=== PATIENT | female | born 1995 | race Caucasian/White ===

== ENCOUNTER 2017-02-15 14:25 | Emergency (ER) | payer BC, OTHER ==
[~2017-02-15] VITALS: Ht 165.1 cm; Wt 75.6 kg
[2017-02-15 14:30] VITALS: BP 141/87; PULSE 97; TEMP 36.8; O2SAT 97; Ht 165.1 cm; Wt 75.6 kg
[2017-02-15] MEDS ORDERED: ACETAMINOPHEN 500 MG TAB PO STA (14:41)
--- NOTE | 2017-02-15 15:14 | DIAGNOSTIC IMAGING REPORT ---
LEFT ANKLE MIN 3 VIEWS ROUTINE CLINICAL HISTORY: same trauma. Pain. COMPARISON: None. DISCUSSION: The bones and joint spaces appear intact. There is no evidence of fracture, dislocation or bony disease. There is no evidence for soft tissue swelling. IMPRESSION: Negative study. The above report was generated using voice recognition software. It may contain grammatical, syntax or spelling errors. Electronically signed by: Jaskaran García M.D. 02/15/2017 3:13 PM Dictated Date/Time: 02/15/2017 3:13 PM
--- NOTE | 2017-02-15 15:14 | DIAGNOSTIC IMAGING REPORT ---
LEFT FOOT MIN 3 VIEWS ROUTINE CLINICAL HISTORY: Left foot pain and swelling TRAUMA COMPARISON: None. DISCUSSION: No acute fractures or dislocations are visualized. There are no erosive changes. IMPRESSION: No fractures identified. Electronically signed by: Isac Tran M.D. 02/15/2017 3:13 PM Dictated Date/Time: 02/15/2017 3:13 PM
--- NOTE | 2017-02-16 06:52 | EMERGENCY ROOM VISIT NOTE ---
ED Visit Note First contact with patient: 14:34 Chief Complaint: Left ankle and foot pain. History of Present Illness: Ms. Krueger is a 21-year-old white female who limps into the ED complaining of left ankle and foot pain. Patient reports approximately 2.5 hours ago she was running for exercise and lost her balance and twisted her ankle. Since that time she is reporting that she has lateral left ankle pain and pain over the lateral aspect of the foot. She describes her pain as a sharp and throbbing sensation around all the ligamentous structures of the lateral aspect of the ankle and over the inferior aspect of the medial ankle. There is also pain and throbbing over the lateral cuneiform tarsals and the fourth and fifth metatarsals. She rates her overall discomfort 7/10. Her pain worsens with ambulation and palpation of the ligamentous structures around the lateral malleolus and inferior aspect of the medial malleolus and palpation of the lateral cuneiform and fourth and fifth metatarsals. She has not identified any alleviating factors related to the pain. She has not taken any medications for pain prior to arrival at the hospital. She denies any associated symptoms including hip pain, knee pain, lower leg pain, foot weakness/numbness/tingling. She does reports she's had previous significant sprains of the ankles but no previous fractures or surgeries. Review of Systems: As noted above in history of present illness. Past Medical History: Asthma, bronchitis, status post wisdom teeth extraction and unspecified shoulder surgery. Current Medications: Patient denies. Allergies to Medications: Patient denies. Social History: Patient is currently employed; she feels safe in her home environment; she denies tobacco use. Physical Examination: Vital Signs: Date Time Temp Pulse Resp B/P (MAP) Pulse Ox O2 Delivery O2 Flow Rate FiO2 02/15/17 14:30 36.8 97 20 141/87 97 Room Air GENERAL: 21-year-old female in mild to moderate distress due to pain, nontoxic- appearing, afebrile and hemodynamically stable. NEUROLOGICAL: Awake, alert and oriented to person, place and time. Answering questions appropriately and following commands. Good hand eye coordination. No focal motor sensory deficits. SKIN: Warm, dry and pink. No soft tissue eruptions or trauma noted. LEFT LOWER EXTREMITY: No gross bony deformity. No tenderness in the hip, knee or lower leg. Moderate tenderness over the lateral malleolus with mild swelling without bony deformity or crepitus. Minimal tenderness over the inferior aspect of the medial malleolus with no swelling, bony deformity or crepitus. There is also moderate tenderness and swelling over the lateral cuneiform tarsal in the fourth and fifth metacarpals with moderate swelling and early ecchymosis but no bony deformity or crepitus. Patient was not able to tolerate ligamentous testing due to pain and swelling. She did have full range of motion in plantar flexion and dorsiflexion of the ankle and flexion and extension of all the toes. Throughout the foot the toes were warm and pink and capillary refill is brisk. She is able to distinguish light sensations through all dermatomes. ED Course: Patient is assessed as noted above. Patient's medication list was reviewed. Patient was given 1 g of Tylenol by mouth and ice for pain and swelling. Left Ankle X-Rays: Were read by myself and the radiologist and shows no acute fractures or dislocations. No evidence of soft tissue swelling. Left Foot X-Rays: Were read by myself and the radiologist showing no evidence of acute fractures or dislocations. Patient was placed in a gel splint and a postop shoe and instructed on nonweight bearing crutch use. Patient was educated about today's findings and instructed on her treatment plan ; she verbalizes understanding and agreement with this plan. Clinical Impression: Left ankle sprain. Left foot contusion. Disposition: Patient discharged home in stable condition; prior to departure she was reassessed and subjectively reported she was feeling slightly better and rated her discomfort 6/10. Plan: Comfort measures were discussed with the patient including rest, ice, elevation , gel splint/postop shoe and nonweightbearing crutches. Additionally ibuprofen and acetaminophen medications were reviewed with the patient. Patient was signed off work for 3 days. Patient was encouraged to follow-up with orthopedics if no better in 6-7 days. Patient was encouraged return to the ED for worsening/uncontrolled pain, uncontrolled swelling, foot weakness/numbness/tingling or any new/concerning symptoms.
== END 2017-02-15 15:49 | disposition home or self-care (01) ==
LOC: C.EDB 14:26 → C.EDD 15:49
DX: S93.402A Sprain of unspecified ligament of left ankle, initial encounter (principal); S90.32XA Contusion of left foot, initial encounter; M25.572 Pain in left ankle and joints of left foot; M79.672 Pain in left foot; X50.9XXA Other and unspecified overexertion or strenuous movements or postures, initial encounter; Y93.02 Activity, running

== ENCOUNTER 2017-10-27 00:56 | Outpatient (CLI) | payer OTHER ==
[~2017-10-27] VITALS: Ht 165.1 cm; Wt 78.5 kg
[2017-10-27] MEDS ORDERED: LACTATED RINGER'S 1000ML 500 ML IV ONE (01:12)
[2017-10-27] MEDS ORDERED: PROMETHAZINE HCL INJ 25 MG in SODIUM CHLORIDE 0.9% 50ML 50 ML IV PRN (01:15)
[2017-10-27] MEDS ORDERED: ACETAMINOPHEN 325 MG TAB PO PRN (01:15)
[2017-10-27] MEDS ORDERED: ONDANSETRON INJ 2 MG/ML 2 ML VIAL IV PRN (01:15)
[2017-10-27 01:39] LABS: HEMATOCRIT 35.7 % (37-47); HEMOGLOBIN 11.9 g/dL (12.0-16.0); MEAN CELL VOLUME 86.9 fL (80-100); MEAN CORPUSCULAR HGB CONC 33.3 g/dl (32-36); MEAN PLATELET VOLUME 9.7 fL (7.4-10.4); PLATELET COUNT 206 K/uL (130-400); RED CELL DISTRIBUTION WIDTH CV 13.5 % (11.5-14.5); RED CELL DISTRIBUTION WIDTH SD 43.3 fL (36.4-46.3); WHITE BLOOD COUNT 11.97 K/uL (4.8-10.8)
[2017-10-27 01:54] LABS: POTASSIUM 3.9 mmol/L (3.5-5.1)
[2017-10-27 02:11] VITALS: Ht 165.1 cm; Wt 78.5 kg
[2017-10-27] MEDS ORDERED: SERT1TAB72 PO (02:12)
[2017-10-27 02:41] LABS: BASO % 0.1 %; BASO ABS # 0.01 K/uL (0-0.2); EOS % 0.3 %; EOS ABS # 0.04 K/uL (0-0.5); IG# 0.03 K/uL (0.00-0.02); LYMPH ABS # 0.36 K/uL (1.2-3.4); MONO % 2.6 %; MONO ABS # 0.31 K/uL (0.11-0.59); NEUT % 93.7 %; NEUT ABS # 11.22 K/uL (1.4-6.5)
[2017-10-27] MEDS: D5W AND LACTATED RINGERS 1,000 ML IV SCH ×2 (02:49→02:50)
[2017-10-27] MEDS ORDERED: ONDA4TAB10 SL (09:36)
--- NOTE | 2017-10-27 09:39 | Discharge Instructions ---
Discharge Instructions Date of Service Oct 27, 2017. Admission Reason for Admission: Cramping Discharge Discharge Diagnosis / Problem: Nausea and vomitting of Discharge Goals Goal(s): Continuing OB care Activity Recommendations Activity Limitations: per Instructions/Follow-up section Lifting Limitations: no more than 10 pounds Exercise/Sports Limitations: rest today, until after follow-up appointment May Resume Sexual Activity: after one week Shower/Bathe: no limitations Driving or Machine Use: resume 3 days after discharge . Instructions / Follow-Up Instructions / Follow-Up next week in office Current Hospital Diet Patient's current hospital diet: Clear Liquid Diet Discharge Diet Recommended Diet: Regular OB Diet Pending Studies Studies pending at discharge: no Medical Emergencies . Who to Call and When: Medical Emergencies: If at any time you feel your situation is an emergency, please call 911 immediately. . Non-Emergent Contact Non-Emergency issues call your: Primary Care Provider . . "Provider Documentation" section prepared by Mandeep Llamas. .
--- NOTE | 2017-10-27 09:47 | Progress Note ---
Progress Note Date of Service Oct 27, 2017. 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
== END 2017-10-27 10:05 | disposition home or self-care (01) ==
LOC: C.LD 00:56 → C.OPB 00:56
PROVIDERS: ATTEND Obstetrics & Gynecology
DX: O62.9 Abnormality of forces of labor, unspecified (principal); O21.9 Vomiting of pregnancy, unspecified; O99.342 Other mental disorders complicating pregnancy, second trimester; F32.9 Major depressive disorder, single episode, unspecified; O99.282 Endocrine, nutritional and metabolic diseases complicating pregnancy, second trimester; E86.0 Dehydration; Z3A.27 27 weeks gestation of pregnancy

== ENCOUNTER 2019-08-15 23:20 | Inpatient (IN) ==
[2019-08-15] MEDS: LACTATED RINGER'S 1,000 ML IV PRN (23:41)
[2019-08-15] MEDS ORDERED: OXYTOCIN 30 UNITS/500 ML BAG IV PRN (23:41)
[2019-08-16] LABS: Hematocrit (blood only) 33.7 % (37-47); Hemoglobin 10.7 g/dL (12.0-16.0); Mean Corpuscular Hemoglobin 25.8 pg (25-34); Mean Corpuscular Volume 81.2 fL (80-100); Mean Platelet Volume 10.9 fL (7.4-10.4); Platelet Count 159 K/uL (130-400); RDW Coefficient of Variation 15.4 % (11.5-14.5); Red Blood Count 4.15 M/uL (4.2-5.4); White Blood Count 8.78 K/uL (4.8-10.8)
[2019-08-16 00:01] LABS: Mean Corpuscular Hgb Conc 31.8 g/dL (32-36)
[2019-08-16] MEDS ORDERED: fentaNYL 2MCG/ML ROPIV 1.25MG/ML 100 ML BAG EPI ONE (00:01)
[2019-08-16] MEDS ORDERED: ePHEDrine sulfate 50 MG/ML AMP ONE (00:01)
[2019-08-16] MEDS ORDERED: fentaNYL citrate 100 MCG/2 ML VIAL ONE (00:01)
[2019-08-16] MEDS ORDERED: BUPIVACAINE 0.25% 30 ML VIAL ONE (00:01)
[2019-08-16] MEDS ORDERED: ONDANSETRON INJ 2 MG/ML 2 ML VIAL IV PRN (00:27)
[2019-08-16] MEDS ORDERED: DiphenhydrAMINE HCL 50 MG/ML VIAL IV PRN (00:27)
[2019-08-16] MEDS ORDERED: NALOXONE HCL 1 MG in SODIUM CHLORIDE 0.9% 1000ML 1,000 ML IV PRN (00:27)
[2019-08-16] MEDS ORDERED: ePHEDrine sulfate 50 MG/ML AMP IV PRN (00:27)
[2019-08-16] MEDS ORDERED: NALOXONE HCL 0.4 MG/1 ML VIAL/CARP IV PRN (00:27)
[2019-08-16] MEDS ORDERED: NALBUPHINE HCL INJ 10 MG/ML AMP IV PRN (00:27)
[2019-08-16] MEDS ORDERED: fentaNYL 2MCG/ML ROPIV 1.25MG/ML 100 ML BAG EPI PRN (00:27)
--- NOTE | 2019-08-16 00:34 | Anesthesiology Consultation ---
Date of Service August 16, 2019 Assessment & Plan Chart Review Chart Review: Patient NOT seen in Pre Admission Testing and Acceptable Risk for Labor Epidural Consults Requested none ASA ASA2 Proposed Anesthesia Anesthesia Type: Labor Epidural and CSE Risk / Benefits Reviewed With: PT / POA / Parent / Guardian, Accepts Plan and Informed Consent Obtained History Height/Weight Height: 5 ft 5 in Weight: 78.471 kg Allergies Allergy/AdvReac Type Severity Reaction Status Date / Time No Known Allergies Allergy Verified 08/15/19 23:47 Medications Home Medications Medication Instructions Recorded Confirmed Last Taken 1 tab PO DAILY 07/10/19 07/10/19 07/10/19 08:00 ferrous sulfate 325 mg PO DAILY #30 tab 07/10/19 Unknown NPO Date Last Intake of Fluids: 08/15/19 Time Last Intake of Fluids: 22:00 Date Last Intake of Solids: 08/15/19 Time Last Intake of Solids: 18:00 Past Medical History Medical History Esophagitis Kidney stone Exercise / Class Metabolic Activity II 4-5 Yardwork/Stairs/Walk up hill Past Surgical History Surgical History H/O shoulder surgery History of esophagogastroduodenoscopy (EGD) History of hip surgery Past Anesthesia History No Hx of Anesthesia Complications and No Family Hx of Anesthesia Complications History of PONV No Hx of PONV and No Hx of Motion Sickness Social History Smoking Status: Never smoker Do You Dip or Chew Tobacco: No Hx Alcohol Use: No Hx Substance Use: No substance use type: does not use Review of Systems no chest pain or sob Physical Exam Vital Signs Last Vital Signs Temp 36.7 C 08/15/19 23:28 Pulse 84 08/16/19 00:31 Resp 18 08/15/19 23:35 BP 124/67 08/15/19 23:35 Pulse Ox 99 08/16/19 00:31 ENMT Mouth: no TMJ abnormality Thyromental Distance: > or= 3.5 Finger Breadths Mallampati Class: II Neck normal visual inspection Respiratory normal respiratory effort Auscultation: lungs clear to auscultation bilaterally Cardiovascular Rate/Rhythm: regular rate and regular rhythm Musculoskeletal Spine: normal cervical ROM Neurologic moves all extremities Psychiatric Orientation: alert and oriented x 3 Testing Laboratory Results 08/15/19 23:51
[2019-08-16] MEDS: LACTATED RINGER'S 1,000 ML IV PRN (00:43)
--- NOTE | 2019-08-16 01:41 | Obstetrical Progress Note ---
Date of Service August 16, 2019 Subjective Pt doing well FHR; CAT1 ctx; 1-3mins VE;10/100/0 AROM -clear anticipate VD Results & Data Vital Signs (Past 12 Hours) Vital Signs Temp Pulse Resp BP Pulse Ox 08/16/19 01:36 76 118/69 08/16/19 01:35 75 100 08/16/19 01:30 72 18 100 08/16/19 01:25 74 100 08/16/19 01:21 63 111/63 08/16/19 01:20 68 99 08/16/19 01:15 65 90 08/16/19 01:10 71 100 08/16/19 01:05 71 113/65 99 08/16/19 01:00 74 100 08/16/19 00:58 85 106/55 L 08/16/19 00:56 75 99/55 L 08/16/19 00:55 84 100 08/16/19 00:54 82 109/57 L 08/16/19 00:52 80 104/58 L 08/16/19 00:50 91 H 108/61 99 08/16/19 00:48 63 103/56 L 08/16/19 00:47 83 116/56 L 08/16/19 00:45 85 99 08/16/19 00:44 82 128/75 08/16/19 00:42 89 128/85 08/16/19 00:40 78 98 08/16/19 00:36 95 H 92 08/16/19 00:35 80 100 08/16/19 00:31 84 99 08/15/19 23:35 61 18 124/67 08/15/19 23:28 36.7 C 08/15/19 23:27 61 124/67
[2019-08-16] MEDS ORDERED: METHYLERGONOVINE MALEATE 0.2 MG/ML AMP ONE (02:47)
[2019-08-16] MEDS ORDERED: OXYTOCIN 30 UNITS/500 ML BAG IV PRN (02:54)
[2019-08-16] MEDS ORDERED: METHYLERGONOVINE MALEATE 0.2 MG/ML AMP IM ONE (02:54)
[2019-08-16] MEDS ORDERED: bisacodyL 10 MG SUPP PR PRN (02:54)
[2019-08-16] MEDS ORDERED: ACETAMINOPHEN 325 MG TAB PO PRN (02:54)
[2019-08-16] MEDS ORDERED: miSOPROStoL 200 MCG TAB PR ONE (02:54)
[2019-08-16] MEDS ORDERED: SUPERCREAM 0.870% 15 GM JAR EXT PRN (02:54)
[2019-08-16] MEDS ORDERED: BENZOCAINE 20% AER SPR 82.5 GM CAN EXT PRN (02:54)
[2019-08-16] MEDS ORDERED: DIPHTHERIA/TETANUS/PERTUSSIS 0.5 ML SYR/VIAL IM ONE (02:54)
[2019-08-16] MEDS ORDERED: HYDROCORTISONE ACETATE 25 MG SUPP PR PRN (02:54)
--- NOTE | 2019-08-16 06:43 | Anesthesia Procedure Note ---
Date of Service August 16, 2019 Anesthesia Post Epidural Note Vital Signs Vital Signs: Temp Pulse Resp BP Pulse Ox 36.7 C 83 18 133/84 98 08/16/19 02:59 08/16/19 06:10 08/16/19 06:10 08/16/19 06:10 08/16/19 03:15 Notes Mental Status: alert / awake / arousable and participated in evaluation Nausea / Vomiting: adequately controlled Pain: adequately controlled Airway Patency, RR, SpO2: stable & adequate BP & HR: stable & adequate Hydration State: stable & adequate Neuraxial Anesthesia: was administered and sensory block is resolving Anesthetic Complications: no major complications apparent and Pt Satisfied with anesthetic care Epidural: Removed without complications and With tip intact
--- NOTE | 2019-08-16 06:44 | Delivery Summary ---
DATE OF OPERATION: 08/15/2019 The patient delivered a live infant in left occiput anterior presentation with right hand compound presentation. was delivered. Cord was clamped and cut after 1 minute. The patient's weight and Apgars in the pediatric record. Cord blood was obtained. Placenta spontaneously delivered. Inspection of the placenta shows a 3-vessel cord. Inspection of the perineum showed no laceration or tears. Rectal exam post repair showed good sphincter tone. Estimated blood loss is 400 mL. All instruments were removed from the vagina including sponges and retractors. Baby and mother are doing well in recovery. I attest to the content of the Intraoperative Record and any orders documented therein. Any exception s are noted below.
[2019-08-16] MEDS: FERROUS SULFATE 325 MG TAB PO SCH (07:50)
[2019-08-16] MEDS: DOCUSATE SODIUM 100 MG CAP PO SCH ×2 (07:50→20:18)
[2019-08-16] MEDS: IBUPROFEN 600 MG TAB PO PRN ×2 (07:50→12:20)
[2019-08-16] MEDS: PRENATAL VITAMIN 1 TAB PO SCH (07:50)
[2019-08-17 07:23] LABS: Hematocrit (blood only) 32.6 % (37-47); Hemoglobin 10.3 g/dL (12.0-16.0); Mean Corpuscular Hemoglobin 25.9 pg (25-34); Mean Corpuscular Hgb Conc 31.6 g/dL (32-36); Mean Corpuscular Volume 82.1 fL (80-100); Mean Platelet Volume 10.9 fL (7.4-10.4); Platelet Count 146 K/uL (130-400); RDW Coefficient of Variation 15.7 % (11.5-14.5); RDW Standard Deviation 46.6 fL (36.4-46.3); Red Blood Count 3.97 M/uL (4.2-5.4); White Blood Count 7.79 K/uL (4.8-10.8)
--- NOTE | 2019-08-17 08:27 | Obstetrical Progress Note ---
Date of Service August 17, 2019 Subjective Patient is seen and examined. She feels well, no complaints. Likes to be discharged Ambulating without dizziness Voiding without difficulty Tolerating regular diet with out N&V Bleeding is minimal No fever/ chills/ CP/ SOB/ N&V/ Leg pain Breast feeding without problems Vital Signs Temp Pulse Resp BP Pulse Ox 08/17/19 00:15 36.8 C 60 16 126/87 98 08/16/19 20:10 36.8 C 82 18 129/83 98 08/16/19 15:40 36.9 C 67 16 125/78 98 08/16/19 11:00 36.8 C 56 L 14 127/87 98 08/17/19 Range/Units 06:30 WBC 7.79 (4.8-10.8) K/uL RBC 3.97 L (4.2-5.4) M/uL Hgb 10.3 L (12.0-16.0) g/dL Hct 32.6 L (37-47) % MCV 82.1 (80-100) fL MCH 25.9 (25-34) pg MCHC 31.6 L (32-36) g/dL RDW Std Deviation 46.6 H (36.4-46.3) fL RDW Coeff of Ariel 15.7 H (11.5-14.5) % Plt Count 146 (130-400) K/uL MPV 10.9 H (7.4-10.4) fL PE: General: Alert, orientedx3, NAD Abd: soft, NT, fundus firm, below Umbilicus Perineum intact, Lochia rubra minimal Ext; NT, no edema AP: 24 yo s/p , ppd# 1 VSS Afebrile doing well Continue routine care All questions were answered D/C home , f/u in office Results & Data Vital Signs (Past 12 Hours) Vital Signs Temp Pulse Resp BP Pulse Ox 08/17/19 00:15 36.8 C 60 16 126/87 98
[2019-08-17] MEDS: FERROUS SULFATE 325 MG TAB PO SCH (08:49)
[2019-08-17] MEDS: DOCUSATE SODIUM 100 MG CAP PO SCH (08:51)
[2019-08-17] MEDS: PRENATAL VITAMIN 1 TAB PO SCH (08:51)
[2019-08-17] MEDS: IBUPROFEN 600 MG TAB PO PRN (08:51)
[2019-08-17] MEDS ORDERED: bisacodyL 5 MG TABEC PO SCH (20:00)
== END 2019-08-17 13:15 | disposition home or self-care (01) | DRG 807 ==
LOC: OPB 23:20 → 4S1 23:20 → 4S2 08-16 06:00

== ENCOUNTER 2019-11-28 14:33 | Observation (INO) ==
[2019-11-28] MEDS ORDERED: SODIUM CHLORIDE 0.9% 1000ML 1,000 ML IV ONE (14:49)
[2019-11-28 15:10] LABS: Basophils # (auto) 0.02 K/uL (0-0.2); Basophils % (auto) 0.2 %; Eosinophils % (auto) 1.1 %; Hematocrit (blood only) 41.5 % (37-47); Hemoglobin 13.9 g/dL (12.0-16.0); Immature Granulocytes # (auto) 0.02 K/uL (0.00-0.02); Immature Granulocytes % (auto) 0.2 %; Lymphocytes # (auto) 1.09 K/uL (1.2-3.4); Lymphocytes % (auto) 12.2 %; Mean Corpuscular Hemoglobin 28.7 pg (25-34); Mean Corpuscular Hgb Conc 33.5 g/dL (32-36); Mean Corpuscular Volume 85.6 fL (80-100); Mean Platelet Volume 10.6 fL (7.4-10.4); Monocytes # (auto) 0.68 K/uL (0.11-0.59); Monocytes % (auto) 7.6 %; Neutrophils # (auto) 7.05 K/uL (1.4-6.5); Neutrophils % (auto) 78.7 %; Platelet Count 209 K/uL (130-400); RDW Coefficient of Variation 13.4 % (11.5-14.5); Red Blood Count 4.85 M/uL (4.2-5.4); White Blood Count 8.96 K/uL (4.8-10.8)
--- NOTE | 2019-11-28 15:18 | Emergency Department Note ---
History of Present Illness General Chief complaint: Abdominal Pain Stated complaint: RIGHT SIDED ABDOMINAL PAIN Time Seen by Provider: 11/28/19 14:37 History of Present Illness Maximum Pain Intensity: 7 24-year-old female who presents to the emergency department with complaint of abdominal pain that is now radiating to the right lower quadrant. The patient reports generalized discomfort that started Wednesday evening, less than 48 hours ago. The patient now reports pain with ambulation. The pain does feel better when she lays in the position. She denies any fevers, chills or vomiting. She has had some chills. The patient reports a prior history of ovarian cyst and kidney stones, but reports that this feels different. Last menstruation was in early September, having had a recent spontaneous vaginal childbirth. The patient rates her discomfort a 7 out of 10. Home Medications Home Medications Medication Instructions Recorded Confirmed Type No Known Home Medications 11/28/19 11/28/19 History Allergies Allergy/AdvReac Type Severity Reaction Status Date / Time No Known Allergies Allergy Verified 11/28/19 15:23 Past Med/Surg History Medical History Esophagitis Kidney stone Ovarian cyst Surgical History H/O shoulder surgery History of esophagogastroduodenoscopy (EGD) History of hip surgery Social History Preferred Language: Romanian Communication Ability: Effective [employer] Required: No Beliefs That Will Affect Care: None marital status: Single Current Living Situation: Family and Significant Other Current Living Situation Comment: Fiance and child current occupational status: employed Feels Safe at Home: Yes Smoking Status: Never smoker Second Hand Exposure: No ; Hx Alcohol Use: No Hx Substance Use: No Review of Systems 10 system review was performed and was negative except for pertinent positives and negatives as indicated in history of present illness Physical Exam Vital Signs Vital Signs - 24 hr 11/28/19 14:34 11/28/19 16:34 Temperature 36.7 C Temperature Source Oral Pulse Rate 106 H Pulse Rate [Finger] 87 Respiratory Rate 18 17 Respiratory Effort / Characteristics Non-Labored Respiratory Depth Normal Normal Respiratory Pattern Regular Blood Pressure 123/84 Blood Pressure [Left Arm] 112/64 Blood Pressure Mean 97 Blood Pressure Mean [Left Arm] 80 Pulse Oximetry 98 97 Oxygen Delivery Method Room Air Room Air Sepsis Recent Fever Within 48 Hours No Sepsis New/Unexplained Change in Mental Status No Sepsis Action Taken by Nursing No Action Required CONSTITUTIONAL: Healthy and well nourished. Patient appears in mild discomfort. HEENT: Normocephalic, atraumatic. No scleral icterus or conjunctival injection/pallor. NECK: Full active range of motion without discomfort. RESPIRATORY: Clear to auscultation bilaterally with no wheezing, crackles, rhonchi or stridor. CARDIOVASCULAR: Regular rate and rhythm with no murmurs, rubs or gallops. GASTROINTESTINAL: Bowel sounds present in all quadrants. Patient has a positive McBurney's point tenderness, positive Rovsing sign, positive psoas/obturator sign and positive heeltap. No rigidity, guarding or rebound. Negative CVA tenderness. MUSCULOSKELETAL: Full range of motion of all joints without discomfort. INTEGUMENTARY: No rash or other significant dermatologic conditions noted. HEMATOLOGIC: No ecchymosis or petechiae. PSYCHIATRIC: Positive affect. NEUROLOGIC: No focal neurologic deficits noted. Course Course Patient history and physical exam were performed. Nurse's notes were reviewed. Vital signs were reviewed, showing a mild tachycardia at 106 bpm, otherwise the patient is afebrile and normotensive. IV access was established, and labs were drawn. The patient refused any analgesics or antiemetics. Review of labs does not show any significant abnormalities. CT of the abdomen and pelvis with IV contrast shows a phlegmonous process concerning for perforated diverticulitis. No fluid collections appreciated. The case was further discussed with Dr. Walters, ED attending physician, who recommended consulting Dr. Gifford, general surgeon on-call. Dr. Gifford indicated that this is a nonsurgical event, andrecommended admission with IV antibiotics. The case was then discussed with the [facility] hospitalist group. Prior to transfer of care, the patient was ordered Zosyn 4.5 g IV infusion, as well as IV morphine and Zofran as the patient did request something for pain since she was going to be admitted. Please see the hospitalist and general surgeon dictations for further treatment and final disposition. Administered Medications Ioversol (Optiray 320 100ml) 92 ml IV ONCE PRN PRN Reason: Interaction Checking Stop: 12/02/19 16:16 Last Admin: 11/28/19 16:17 Dose: 92 ml Documented by: [id number] Discontinued Medications Sodium Chloride (Nss 1000ml) 1,000 mls @ 999 mls/hr IV .Q1H1M ONE Stop: 11/28/19 15:49 Last Infusion: 11/28/19 16:42 Dose: 0 mls/hr Documented by: [id number] Admin: 11/28/19 15:14 Dose: 999 mls/hr Documented by: [id number] Medical Decision Making Medical Records Attestation: I reviewed the patient's medical records. Home Medications Current Medication List: was personally reviewed by in Laboratory Data Attestation: I reviewed the patient's lab results. Result diagrams: 11/28/19 14:55 11/28/19 14:55 Lab Results 11/28/19 11/28/19 11/28/19 Range/Units 14:55 14:55 14:59 WBC 8.96 (4.8-10.8) K/uL RBC 4.85 (4.2-5.4) M/uL Hgb 13.9 (12.0-16.0) g/dL Hct 41.5 (37-47) % MCV 85.6 (80-100) fL MCH 28.7 (25-34) pg MCHC 33.5 (32-36) g/dL RDW Std Deviation 42.0 (36.4-46.3) fL RDW Coeff of Ariel 13.4 (11.5-14.5) % Plt Count 209 (130-400) K/uL MPV 10.6 H (7.4-10.4) fL Immature Gran % (Auto) 0.2 % Neut % (Auto) 78.7 % Lymph % (Auto) 12.2 % [place] % (Auto) 7.6 % Eos % (Auto) 1.1 % Baso % (Auto) 0.2 % Immature Gran # (Auto) 0.02 (0.00-0.02) K/uL Neut # (Auto) 7.05 H (1.4-6.5) K/uL Lymph # (Auto) 1.09 L (1.2-3.4) K/uL [place] # (Auto) 0.68 H (0.11-0.59) K/uL Eos # (Auto) 0.10 (0-0.5) K/uL Baso # (Auto) 0.02 (0-0.2) K/uL Sodium 140 (136-145) mmol/L Potassium 3.6 (3.5-5.1) mmol/L Chloride 108 H (98-107) mmol/L Carbon Dioxide 27 (21-32) mmol/L Anion Gap 5.0 (3-11) BUN 9 (7-18) mg/dl Creatinine 0.82 (0.6-1.2) mg/dl Est Cr Clr Drug Dosing 95.2 ml/min Est GFR ( Amer) 116.1 Est GFR (Non-Af Amer) 100.2 BUN/Creatinine Ratio 10.6 (10-20) Glucose 90 (70-99) mg/dl Calcium 8.8 (8.5-10.1) mg/dl Total Bilirubin 1.9 H (0.2-1) mg/dl AST 11 L (15-37) U/L ALT 20 (12-78) U/L Alkaline Phosphatase 91 (45-117) U/L Total Protein 7.7 (6.4-8.2) gm/dl Albumin 3.8 (3.4-5.0) gm/dl Globulin 3.9 (2.5-4.0) gm/dl Albumin/Globulin Ratio 1.0 (0.9-2) Lipase 83 (73-393) U/L Urine Color Dark Yellow Urine Appearance Clear (Clear) Urine pH 6.0 (4.5-7.5) Ur Specific [place] 1.035 H (1.000-1.030) Urine Protein Negative (Negative) Urine Glucose (UA) Negative (Negative) Urine Ketones Trace H (Negative) Urine Blood Negative (Negative) Urine Nitrite Negative (Negative) Urine Bilirubin Negative (Negative) Urine Urobilinogen Negative (Negative) Ur Leukocyte Esterase Negative (Negative) Imaging Data Attestation: I personally reviewed and interpreted this imaging study as follows: My Impression: CT of the abdomen and pelvis with IV contrast shows a phlegmon type process in the right upper quadrant, concerning for perforated diverticulitis versus colitis, and less likely epiploic appendagitis. Radiologist report was also reviewed. Radiologist's Impression: CT abd pelvis IV con only CT DOSE: 293.45 mGy.cm HISTORY: Pain. Flank pain. RLQ pain TECHNIQUE: Multiaxial CT images of the abdomen and pelvis were performed following the use of intravenous contrast. A dose lowering technique was utilized adhering to the principles of ALARA. COMPARISON STUDY: 02/27/2015 FINDINGS: Lung bases remain generally clear. The liver spleen and pancreas are unremarkable. Inferior to the gallbladder is a phlegmon as type process containing what is statistically an appendicolith, although the appendix appears to be inferior to this process with a maximum diameter of 4.5 mm. Possibility of a calcified diverticulum is considered consistent with potential perforated diverticulitis. There does seem to be moderate wall thickening of the hepatic flexure of the colon. The inferior aspect of the cecum is unremarkable. The appendix again is unremarkable. Bowel pattern is considered nonobstructive. There is a small amount of free flu id within the pelvic cul-de-sac. There are small bilateral ovarian follicular cysts.. The exact diameter the appendix is difficult to ascertain due to the presence of surrounding phlegmon as type tissue. This phlegmon is process extends over a geographic distance of 6 x 5 cm. IMPRESSION: 1. Phlegmon type process right upper quadrant containing a 6 mm calcification. 2. The appearance is consistent with that of a phlegmonous type process measuring 6 x 5 cm, most likely related to perforated diverticulitis versus colitis, and less likely appendicitis epiploica. 3. No well-defined percutaneously drainable abscess or collection. Blood Pressure Blood Pressure Findings: Normal blood pressure MDM Narrative Patient presents to the emergency department with abdominal pain for less than 48 hours, now radiating into the right lower quadrant region. The patient does have clinical exam findings concerning for appendicitis, however CT imaging does not show a susi appendicitis. A phlegmon type process is noted, with radiologist concern for possible perforated diverticulitis, colitis or less lik chuyita, epiploic appendagitis. Laboratory studies does not show any leukocytosis, and the patient is afebrile at this point. Laboratory studies are also not suggestive of pancreatitis, cholecystitis or hepatitis. Impression & Plan Perforated diverticulum Discharge Plan Visit Data Chief Complaint: Abdominal Pain Stated Complaint: RIGHT SIDED ABDOMINAL PAIN ED Provider: Dontae Walters ED Midlevel Provider: Odilon Herron Discharge Problem: Perforated diverticulum Forms Stand Alone Forms: [employer] Prescriptions Prescriptions: No Action No Known Home Medications RF: 0
[2019-11-28 15:25] LABS: Appearance Urine Clear (Clear); Bilirubin Urine Negative (Negative); Blood Urine Negative (Negative); Color Urine Dark Yellow; Glucose Urine UA Negative (Negative); Ketones Urine Trace (Negative); Leukocyte Esterase Urine Negative (Negative); Nitrite Urine Negative (Negative); Protein Urine Negative (Negative); Specific Gravity Urine 1.035 (1.000-1.030); Urobilinogen Urine Negative (Negative)
[2019-11-28 15:27] LABS: Albumin Level 3.8 gm/dl (3.4-5.0); BUN Creatinine Ratio 10.6 (10-20); Calcium 8.8 mg/dl (8.5-10.1); Creatinine Clr Calc Pharmacy 95.2 ml/min; Est GFR (African American) 116.1; Est GFR (Non-African American) 100.2; Potassium 3.6 mmol/L (3.5-5.1)
[2019-11-28 15:30] LABS: Bilirubin,Total 1.9 mg/dl (0.2-1); Globulin 3.9 gm/dl (2.5-4.0); Total Protein 7.7 gm/dl (6.4-8.2)
[2019-11-28] MEDS ORDERED: IOVERSOL 100ml IV PRN (16:17)
--- NOTE | 2019-11-28 16:33 | CT Scan Report ---
CT abd pelvis IV con only CT DOSE: 293.45 mGy.cm HISTORY: Pain. Flank pain. RLQ pain TECHNIQUE: Multiaxial CT images of the abdomen and pelvis were performed following the use of intrave nous contrast. A dose lowering technique was utilized adhering to the principles of ALARA. COMPARISON STUDY: 02/27/2015 FINDINGS: Lung bases remain generally clear. The liver spleen and pancreas are unremarkable. Inferior to the gallbladder is a phlegmon as type process containing what is statistically an appendi colith, although the appendix appears to be inferior to this process with a maximum diameter of 4.5 m m. Possibility of a calcified diverticulum is considered consistent with potential perforated diverticul itis. There does seem to be moderate wall thickening of the hepatic flexure of the colon. The inferior aspect of the cecum is unremarkable. The appendix again is unremarkable. Bowel pattern is considered nonobstructive. There is a small amount of free fluid within the pelvic c ul-de-sac. There are small bilateral ovarian follicular cysts.. The exact diameter the appendix is di fficult to ascertain due to the presence of surrounding phlegmon as type tissue. This phlegmon is process extends over a geographic distance of 6 x 5 cm. IMPRESSION: 1. Phlegmon type process right upper quadrant containing a 6 mm calcification. 2. The appearance is consistent with that of a phlegmonous type process measuring 6 x 5 cm, most like ly related to perforated diverticulitis versus colitis, and less likely appendicitis epiploica. 3. No well-defined percutaneously drainable abscess or collection. ACT 112: Negative or not required by law. The above report was generated using voice recognition software. It may contain grammatical, syntax or spelling errors. Electronically signed by: Jaskaran García M.D. 11/28/2019 4:32 PM
[2019-11-28] MEDS ORDERED: PIPERACILL/TAZOBAC CONSULT ACTIVE PRN (17:02)
[2019-11-28] MEDS ORDERED: PIPERACILLIN/TAZOBACTAM 4.5 GM/120 ML BAG IV ONE (17:02)
[2019-11-28] MEDS ORDERED: ONDANSETRON INJ 2 MG/ML 2 ML VIAL IV STA (17:03)
[2019-11-28] MEDS ORDERED: MoRPHine SULFATE 4 MG/ML 1 ML CARP\\VIAL IV STA (17:03)
[2019-11-28 17:23] LABS: Pregnancy Test, Serum Negative (Negative)
--- NOTE | 2019-11-28 17:49 | History & Physical Report ---
Date of Service November 28, 2019 Assessment & Plan (1) Abdominal pain: Phlegmon DDX: perforated diverticulitis/colitis, appendicitis epiplocicae Pt is 24 y/o F without significant medical history presented to ER with complaint of progressive abdominal pain x 2 days. Started epigastric to RUQ and radiating to RLQ. +nausea. Denies fever/chills, vomiting, diarrhea, constipation In ER pt afebrile, P: 106 down to 87, R: 18, BP: 123/84, 98% on RA. No leukocytosis, no significant electrolyte abnormality. Negative test. UA unremarkable CT ABD/PELVIS: 1. Phlegmon type process right upper quadrant containing a 6 mm calcification. 2. The appearance is consistent with that of a phlegmonous type process measuring 6 x 5 cm, most likely related to perforated diverticulitis versus colitis, and less likely appendicitis epiploica. 3. No well-defined percutaneously drainable abscess or collection. -In ER given 1L NSS, zofran, morphine 4mg IV, Zosyn -Consult general surgery, ER spoke to Dr Gifford who recommended IV antibiotics and monitoring with no planned surgical procedure at this time -Obtain blood cultures -Will make NPO midnight -IVF -Zofran prn, Morphine prn pain -Zosyn -CBC, BMP in am DVT Prophylaxis -Low risk, ambulate Full Code Follows with Dr El for routine care Pt was seen and care coordinated with Dr Perales. See addendum History of Present Illness Chief Complaint: abdominal pain Primary Care Provider: Malachi El DO Pt is 24 y/o F without significant medical history presented to ER with c omplaint of abdominal pain x2 days. Patient states 2 days ago started with cramping type pain to mid abdomen after eating dinner. Reports past 2 days pain has progressed to right upper quadrant radiating to right back and right lower quadrant with pain changing to squeezing type pain with intermittent sharp pains. Patient reports feels nauseated with the sharp pains. Denies any nausea, vomiting. Reports normal BMs last being this morning. Denies any fevers chills. Last ate granola bar this morning. Denies history of abdominal surgery. LMP 10/2019. Patient had vaginal delivery 08/16/2019. Denies diaphoresis, N/V, LÓPEZ, dizziness, syncope, vision changes, neck pain, CP, SOB, orthopnea, palpitations, cough, sore throat, choking, otalgia, rhinorrhea, paresthesias, weakness, extremity weakness, extremity edema, rashes, urinary symptoms. Allergies Allergy/AdvReac Type Severity Reaction Status Date / Time No Known Allergies Allergy Verified 11/28/19 15:23 Home Medications Home Medications Medication Instructions Recorded Confirmed Type No Known Home Medications 11/28/19 11/28/19 History Past Med/Surg History Medical History (Updated 11/28/19 @ 17:54 by Rowan Dumont PA-C) Esophagitis Kidney stone Ovarian cyst Surgical History (Updated 11/28/19 @ 19:12 by Jaskaran Gifford MD) H/O shoulder surgery Right History of esophagogastroduodenoscopy (EGD) History of hip surgery Right Family History (Updated 11/28/19 @ 17:50 by Rowan Dumont PA-C) Other Hypertension Social History (Updated 11/28/19 @ 17:50 by Rowan Dumont PA-C) Preferred Language: Telugu Communication Ability: Effective Forest Technician Required: No Beliefs That Will Affect Care: None marital status: Single Current Living Situation: Family and Significant Other Current Living Situation Comment: Fiance and child current occupational status: employed Other Information That Helps Us Care for You: No Feels Safe at Home: Yes Safety Concerns: Feels Safe At This Time Smoking Status: Never smoker Second Hand Exposure: No ; Hx Alcohol Use: Yes Alcohol Intake Frequency: Holidays/Special Occasions Hx Substance Use: No Review of Systems Review of Systems: All systems reviewed & are unremarkable except as noted in HPI & below Physical Exam Physical Exam: General: no distress, non-toxic appearance, WDWN Head: normocephalic, atraumatic Eyes: PERRL, EOM's intact, conjunctiva non-injected, anicteric ENT: normal inspection external ears, nose, mucous membranes moist Neck: supple, trachea midline Lungs: clear, no respiratory distress, no wheezing/rhonchi/rales CV: RRR, no murmur, no JVD, no pretibial edema Abd: normal BS, soft, +tenderness to palpation epigastric, +tenderness to palpation RUQ and RLQ with guarding, no rebound Ext: no cyanosis, no calf tenderness Neuro: A&O x 3, no focal deficits noted, normal affect Skin: warm, dry Results & Data Results & Data ([facility]) Vital Signs (Past 12 Hours) Vital Signs Temp Pulse Pulse Resp BP BP Pulse Ox 11/28/19 16:34 87 17 112/64 97 11/28/19 14:34 36.7 C 106 H 18 123/84 98 Laboratory Results Short CBC 11/28/19 Range/Units 14:55 WBC 8.96 (4.8-10.8) K/uL Hgb 13.9 (12.0-16.0) g/dL Hct 41.5 (37-47) % Plt Count 209 (130-400) K/uL BMP 11/28/19 14:55 Sodium 140 Potassium 3.6 Chloride 108 H Carbon Dioxide 27 BUN 9 Creatinine 0.82 Glucose 90 Calcium 8.8 Liver Function 11/28/19 Range/Units 14:55 Total Bilirubin 1.9 H (0.2-1) mg/dl AST 11 L (15-37) U/L ALT 20 (12-78) U/L Alkaline Phosphatase 91 (45-117) U/L Albumin 3.8 (3.4-5.0) gm/dl Urine 11/28/19 Range/Units 14:59 Urine Color Dark Yellow Urine Appearance Clear (Clear) Urine pH 6.0 (4.5-7.5) Ur Specific [place] 1.035 H (1.000-1.030) Urine Protein Negative (Negative) Urine Glucose (UA) Negative (Negative) Diagnostic Findings CT ABD/PELVIS: IMPRESSION: 1. Phlegmon type process right upper quadrant containing a 6 mm calcification. 2. The appearance is consistent with that of a phlegmonous type process measuring 6 x 5 cm, most likely related to perforated diverticulitis versus colitis, and less likely appendicitis epiploica. 3. No well-defined percutaneously drainable abscess or collection. Code Status & VTE Plan VTE Prophylaxis Plan VTE Prophylaxis will be ordered: No Supervising Physician Co-Signing Physician Notes I have seen and examined the patient and have discussed the case with the provider above. I agree with the assessment and plan as stated. 24 yo F with acute severe right abdominal pain. Three months post- and is breast- feeding. No changes in stool, no blood per rectum noted. No vomiting and she has been tolerating PO. My physical exam findings are consistent with the provider above. She is non toxic appearing. Workup reveals no leukocytosis and CT imaging revealing a phlegmon. Etiologies include but are not limited to acute diverticulitis with microperforation and complicating large abscess, acute appendicitis, Meckel's diverticulum, foreign body obstruction resulting in phlegmon. Although afebrile and hemodynamically stable, she was empirically starting on Zosyn and blood cultures were drawn. She is requiring morphine to treat the pain. 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 Surgery consulted and recommends conservative management at this time. DO Diaz
[2019-11-28] MEDS ORDERED: MoRPHine SULFATE 4 MG/ML 1 ML CARP\\VIAL IV PRN (18:09)
[2019-11-28] MEDS ORDERED: CONSULT PHARMACY STA (18:09)
[2019-11-28] MEDS ORDERED: ONDANSETRON INJ 2 MG/ML 2 ML VIAL IV PRN (18:09)
[2019-11-28] MEDS: SODIUM CHLORIDE 0.9% 1000ML 1,000 ML IV SCH (18:21)
[2019-11-28] MEDS: ACETAMINOPHEN 325 MG TAB PO PRN ×2 (18:31→23:36)
--- NOTE | 2019-11-28 19:16 | Surgery Consultation ---
Date of Consultation November 28, 2019 Assessment & Plan (1) Abdominal pain: This patient has abdominal pain with a phlegmon in the upper abdomen. There is a calcification present as well. This cannot be deemed an appendicolith however. This could be a colitis versus a local perforation versu s an epiploica appendagitis. There is no evidence of diffuse peritonitis. I would agree with conservative management first. I agree with antibiotics and keeping her n.p.o. for now. Can reevaluate in the morning. I would however strongly consider repeating the CT scan with oral contrast for better delineation of the bowel. History of Present Illness Reason for Consultation: Abdominal pain Requesting Physician: Jud Perales DO Attending Physician: Jud Perales, DO History of Present Illness This is a 24-year-old female who presented to the emergency room with a complaint of abdominal pain. She states that began 2 days ago while she was at work towards the afternoon. It began as a dull ache-like discomfort that was very intermittent. As time is progressed it has become more continuous and more sharp. It was located initially in the periumbilical region but then migrated towards the right side. It is exacerbated by motion. She has not lost her geri etite. In fact she is very hungry. She had no fever. She denies nausea and vomiting. She has not had a change in her bowel habits. There is no melena or hematochezia. She denies dysuria and hematuria. She denies trauma to the area. Allergies Allergy/AdvReac Type Severity Reaction Status Date / Time No Known Allergies Allergy Verified 11/28/19 15:23 Home Medications Home Medications Medication Instructions Recorded Confirmed Type No Known Home Medications 11/28/19 11/28/19 History Patient History Medical History (Updated 11/28/19 @ 17:54 by Rowan Dumont PA-C) Esophagitis Kidney stone Ovarian cyst Surgical History (Updated 11/28/19 @ 19:12 by Jaskaran Gifford MD) H/O shoulder surgery Right History of esophagogastroduodenoscopy (EGD) History of hip surgery Right Family History (Updated 11/28/19 @ 17:50 by Rowan Dumont PA-C) Other Hypertension Social History (Updated 11/28/19 @ 17:50 by Rowan Dumont PA-C) Preferred Language: Occitan Communication Ability: Effective Machine Stuffer Automatic Required: No Beliefs That Will Affect Care: None marital status: Single Current Living Situation: Family and Significant Other Current Living Situation Comment: Fiance and child current occupational status: employed Other Information That Helps Us Care for You: No Feels Safe at Home: Yes Safety Concerns: Feels Safe At This Time Smoking Status: Never smoker Second Hand Exposure: No ; Hx Alcohol Use: Yes Alcohol Intake Frequency: Holidays/Special Occasions Hx Substance Use: No Review of Systems Review of Systems: All systems reviewed & are unremarkable except as noted in HPI & below Physical Exam Constitutional: no acute distress Neck: trachea midline Respiratory: normal respiratory effort, lungs clear to auscultation Cardiovascular: RRR, no murmur, no edema Gastrointestinal (Abdomen): Inspection/Auscultation: normal bowel sounds; abdomen not distended Percussion/Palpation: + abdomen tender (To moderate palpation to the right of the umbilicus and in the right upper abdomen mostly but with some tenderness in the right lower abdomen) and abdomen soft; abdomen not rigid Skin: no rashes, warm and dry Lymphatic: no cervical lymphadenopathy Results & Data Vital Signs (Past 12 Hours) Vital Signs Temp Pulse Pulse Resp BP BP Pulse Ox 11/28/19 18:05 37.5 C 87 18 128/80 97 11/28/19 17:47 72 19 116/59 L 98 11/28/19 16:34 87 17 112/64 97 11/28/19 14:34 36.7 C 106 H 18 123/84 98 Laboratory Results 11/28/19 11/28/19 11/28/19 Range/Units 14:59 14:55 14:55 WBC (4.8-10.8) K/uL RBC (4.2-5.4) M/uL Hgb (12.0-16.0) g/dL Hct (37-47) % MCV (80-100) fL MCH (25-34) pg MCHC (32-36) g/dL RDW Std Deviation (36.4-46.3) fL RDW Coeff of Ariel (11.5-14.5) % Plt Count (130-400) K/uL MPV (7.4-10.4) fL Immature Gran % (Auto) % Neut % (Auto) % Lymph % (Auto) % [place] % (Auto) % Eos % (Auto) % Baso % (Auto) % Immature Gran # (Auto) (0.00-0.02) K/uL Neut # (Auto) (1.4-6.5) K/uL Lymph # (Auto) (1.2-3.4) K/uL [place] # (Auto) (0.11-0.59) K/uL Eos # (Auto) (0-0.5) K/uL Baso # (Auto) (0-0.2) K/uL Sodium 140 (136-145) mmol/L Potassium 3.6 (3.5-5.1) mmol/L Chloride 108 H (98-107) mmol/L Carbon Dioxide 27 (21-32) mmol/L Anion Gap 5.0 (3-11) BUN 9 (7-18) mg/dl Creatinine 0.82 (0.6-1.2) mg/dl Est Cr Clr Drug Dosing 95.2 ml/min Est GFR ( Amer) 116.1 Est GFR (Non-Af Amer) 100.2 BUN/Creatinine Ratio 10.6 (10-20) Glucose 90 (70-99) mg/dl Calcium 8.8 (8.5-10.1) mg/dl Total Bilirubin 1.9 H (0.2-1) mg/dl AST 11 L (15-37) U/L ALT 20 (12-78) U/L Alkaline Phosphatase 91 (45-117) U/L Total Protein 7.7 (6.4-8.2) gm/dl Albumin 3.8 (3.4-5.0) gm/dl Globulin 3.9 (2.5-4.0) gm/dl Albumin/Globulin Ratio 1.0 (0.9-2) Lipase 83 (73-393) U/L HCG, Qual Negative (Negative) Urine Color Dark Yellow Urine Appearance Clear (Clear) Urine pH 6.0 (4.5-7.5) Ur Specific [place] 1.035 H (1.000-1.030) Urine Protein Negative (Negative) Urine Glucose (UA) Negative (Negative) Urine Ketones Trace H (Negative) Urine Blood Negative (Negative) Urine Nitrite Negative (Negative) Urine Bilirubin Negative (Negative) Urine Urobilinogen Negative (Negative) Ur Leukocyte Esterase Negative (Negative) 11/28/19 Range/Units 14:55 WBC 8.96 (4.8-10.8) K/uL RBC 4.85 (4.2-5.4) M/uL Hgb 13.9 (12.0-16.0) g/dL Hct 41.5 (37-47) % MCV 85.6 (80-100) fL MCH 28.7 (25-34) pg MCHC 33.5 (32-36) g/dL RDW Std Deviation 42.0 (36.4-46.3) fL RDW Coeff of Ariel 13.4 (11.5-14.5) % Plt Count 209 (130-400) K/uL MPV 10.6 H (7.4-10.4) fL Immature Gran % (Auto) 0.2 % Neut % (Auto) 78.7 % Lymph % (Auto) 12.2 % [place] % (Auto) 7.6 % Eos % (Auto) 1.1 % Baso % (Auto) 0.2 % Immature Gran # (Auto) 0.02 (0.00-0.02) K/uL Neut # (Auto) 7.05 H (1.4-6.5) K/uL Lymph # (Auto) 1.09 L (1.2-3.4) K/uL [place] # (Auto) 0.68 H (0.11-0.59) K/uL Eos # (Auto) 0.10 (0-0.5) K/uL Baso # (Auto) 0.02 (0-0.2) K/uL Sodium (136-145) mmol/L Potassium (3.5-5.1) mmol/L Chloride (98-107) mmol/L Carbon Dioxide (21-32) mmol/L Anion Gap (3-11) BUN (7-18) mg/dl Creatinine (0.6-1.2) mg/dl Est Cr Clr Drug Dosing ml/min Est GFR ( Amer) Est GFR (Non-Af Amer) BUN/Creatinine Ratio (10-20) Glucose (70-99) mg/dl Calcium (8.5-10.1) mg/dl Total Bilirubin (0.2-1) mg/dl AST (15-37) U/L ALT (12-78) U/L Alkaline Phosphatase (45-117) U/L Total Protein (6.4-8.2) gm/dl Albumin (3.4-5.0) gm/dl Globulin (2.5-4.0) gm/dl Albumin/Globulin Ratio (0.9-2) Lipase (73-393) U/L HCG, Qual (Negative) Urine Color Urine Appearance (Clear) Urine pH (4.5-7.5) Ur Specific [place] (1.000-1.030) Urine Protein (Negative) Urine Glucose (UA) (Negative) Urine Ketones (Negative) Urine Blood (Negative) Urine Nitrite (Negative) Urine Bilirubin (Negative) Urine Urobilinogen (Negative) Ur Leukocyte Esterase (Negative) Diagnostic Findings CT abd pelvis IV con only CT DOSE: 293.45 mGy.cm HISTORY: Pain. Flank pain. RLQ pain TECHNIQUE: Multiaxial CT images of the abdomen and pelvis were performed following the use of intravenous contrast. A dose lowering technique was utilized adhering to the principles of ALARA. COMPARISON STUDY: 02/27/2015 FINDINGS: Lung bases remain generally clear. The liver spleen and pancreas are unremarkable. Inferior to the gallbladder is a phlegmon as type process containing what is statistically an appendicolith, although the appendix appears to be inferior to this process with a maximum diameter of 4.5 mm. Possibility of a calcified diverticulum is considered consistent with potential perforated diverticulitis. There does seem to be moderate wall thickening of the hepatic flexure of the colon. The inferior aspect of the cecum is unremarkable. The appendix again is unremarkable. Bowel pattern is considered nonobstructive. There is a small amount of free fluid within the pelvic cul-de-sac. There are small bilateral ovarian follicular cysts.. The exact diameter the appendix is difficult to ascertain due to the presence of surrounding phlegmon as type tissue. This phlegmon is process extends over a geographic distance of 6 x 5 cm. IMPRESSION: 1. Phlegmon type process right upper quadrant containing a 6 mm calcification. 2. The appearance is consistent with that of a phlegmonous type process measuring 6 x 5 cm, most likely related to perforated diverticulitis versus c olitis, and less likely appendicitis epiploica. 3. No well-defined percutaneously drainable abscess or collection.
[2019-11-28] MEDS: PIPERACILLIN/TAZOBACTAM 3.375 GM in DEXTROSE 5% 100 ML IV SCH (21:09)
[2019-11-29] MEDS: SODIUM CHLORIDE 0.9% 1000ML 1,000 ML IV SCH (02:14)
[2019-11-29] MEDS: ACETAMINOPHEN 325 MG TAB PO PRN ×3 (03:49→12:35)
[2019-11-29] MEDS: PIPERACILLIN/TAZOBACTAM 3.375 GM in DEXTROSE 5% 100 ML IV SCH ×3 (05:02→22:23)
[2019-11-29 05:19] LABS: Hematocrit (blood only) 35.2 % (37-47); Hemoglobin 11.5 g/dL (12.0-16.0); Mean Corpuscular Hgb Conc 32.7 g/dL (32-36); Mean Corpuscular Volume 85.9 fL (80-100); Mean Platelet Volume 10.5 fL (7.4-10.4); Platelet Count 172 K/uL (130-400); RDW Coefficient of Variation 13.4 % (11.5-14.5); RDW Standard Deviation 42.2 fL (36.4-46.3); White Blood Count 6.31 K/uL (4.8-10.8)
[2019-11-29 05:44] LABS: BUN Creatinine Ratio 9.1 (10-20); Creatinine Clr Calc Pharmacy 101.4 ml/min; Est GFR (African American) 125.3; Est GFR (Non-African American) 108.1; Potassium 3.7 mmol/L (3.5-5.1)
--- NOTE | 2019-11-29 08:49 | Surgery Progress Note ---
Date of Service November 29, 2019 Assessment & Plan (1) Abdominal pain: Patient has some pain but it is somewhat better subjectively Abdomen remains tender but without mass White blood cell count remains normal Would recommend repeating CAT scan with oral contrast and will order that and await the results Subjective Pain is slightly better when lying still but still has exacerbation when she gets up to walk around No nausea or vomiting Has appetite Physical Exam Gastrointestinal (Abdomen): Inspection/Auscultation: normal bowel sounds; abdomen not distended Percussion/Palpation: + abdomen tender (Remains in the right side mostly upper abdomen) and abdomen soft; no abdominal mass Results & Data Vital Signs (Past 12 Hours) Vital Signs Temp Pulse Resp BP Pulse Ox 11/29/19 07:16 37.0 C 86 16 109/67 96 11/28/19 23:17 37.3 C 85 16 104/65 96 Laboratory Results 11/29/19 11/29/19 11/28/19 Range/Units 05:02 05:02 14:59 WBC 6.31 (4.8-10.8) K/uL RBC 4.10 L (4.2-5.4) M/uL Hgb 11.5 L (12.0-16.0) g/dL Hct 35.2 L (37-47) % MCV 85.9 (80-100) fL MCH 28.0 (25-34) pg MCHC 32.7 (32-36) g/dL RDW Std Deviation 42.2 (36.4-46.3) fL RDW Coeff of Ariel 13.4 (11.5-14.5) % Plt Count 172 (130-400) K/uL MPV 10.5 H (7.4-10.4) fL Immature Gran % (Auto) % Neut % (Auto) % Lymph % (Auto) % [place] % (Auto) % Eos % (Auto) % Baso % (Auto) % Immature Gran # (Auto) (0.00-0.02) K/uL Neut # (Auto) (1.4-6.5) K/uL Lymph # (Auto) (1.2-3.4) K/uL [place] # (Auto) (0.11-0.59) K/uL Eos # (Auto) (0-0.5) K/uL Baso # (Auto) (0-0.2) K/uL Sodium 141 (136-145) mmol/L Potassium 3.7 (3.5-5.1) mmol/L Chloride 111 H (98-107) mmol/L Carbon Dioxide 24 (21-32) mmol/L Anion Gap 6.0 (3-11) BUN 7 (7-18) mg/dl Creatinine 0.77 (0.6-1.2) mg/dl Est Cr Clr Drug Dosing 101.4 ml/min Est GFR ( Amer) 125.3 Est GFR (Non-Af Amer) 108.1 BUN/Creatinine Ratio 9.1 L (10-20) Glucose 73 (70-99) mg/dl Calcium 8.0 L (8.5-10.1) mg/dl Total Bilirubin (0.2-1) mg/dl AST (15-37) U/L ALT (12-78) U/L Alkaline Phosphatase (45-117) U/L Total Protein (6.4-8.2) gm/dl Albumin (3.4-5.0) gm/dl Globulin (2.5-4.0) gm/dl Albumin/Globulin Ratio (0.9-2) Lipase (73-393) U/L HCG, Qual (Negative) Urine Color Dark Yellow Urine Appearance Clear (Clear) Urine pH 6.0 (4.5-7.5) Ur Specific [place] 1.035 H (1.000-1.030) Urine Protein Negative (Negative) Urine Glucose (UA) Negative (Negative) Urine Ketones Trace H (Negative) Urine Blood Negative (Negative) Urine Nitrite Negative (Negative) Urine Bilirubin Negative (Negative) Urine Urobilinogen Negative (Negative) Ur Leukocyte Esterase Negative (Negative) 11/28/19 11/28/19 11/28/19 Range/Units 14:55 14:55 14:55 WBC 8.96 (4.8-10.8) K/uL RBC 4.85 (4.2-5.4) M/uL Hgb 13.9 (12.0-16.0) g/dL Hct 41.5 (37-47) % MCV 85.6 (80-100) fL MCH 28.7 (25-34) pg MCHC 33.5 (32-36) g/dL RDW Std Deviation 42.0 (36.4-46.3) fL RDW Coeff of Ariel 13.4 (11.5-14.5) % Plt Count 209 (130-400) K/uL MPV 10.6 H (7.4-10.4) fL Immature Gran % (Auto) 0.2 % Neut % (Auto) 78.7 % Lymph % (Auto) 12.2 % [place] % (Auto) 7.6 % Eos % (Auto) 1.1 % Baso % (Auto) 0.2 % Immature Gran # (Auto) 0.02 (0.00-0.02) K/uL Neut # (Auto) 7.05 H (1.4-6.5) K/uL Lymph # (Auto) 1.09 L (1.2-3.4) K/uL [place] # (Auto) 0.68 H (0.11-0.59) K/uL Eos # (Auto) 0.10 (0-0.5) K/uL Baso # (Auto) 0.02 (0-0.2) K/uL Sodium 140 (136-145) mmol/L Potassium 3.6 (3.5-5.1) mmol/L Chloride 108 H (98-107) mmol/L Carbon Dioxide 27 (21-32) mmol/L Anion Gap 5.0 (3-11) BUN 9 (7-18) mg/dl Creatinine 0.82 (0.6-1.2) mg/dl Est Cr Clr Drug Dosing 95.2 ml/min Est GFR ( Amer) 116.1 Est GFR (Non-Af Amer) 100.2 BUN/Creatinine Ratio 10.6 (10-20) Glucose 90 (70-99) mg/dl Calcium 8.8 (8.5-10.1) mg/dl Total Bilirubin 1.9 H (0.2-1) mg/dl AST 11 L (15-37) U/L ALT 20 (12-78) U/L Alkaline Phosphatase 91 (45-117) U/L Total Protein 7.7 (6.4-8.2) gm/dl Albumin 3.8 (3.4-5.0) gm/dl Globulin 3.9 (2.5-4.0) gm/dl Albumin/Globulin Ratio 1.0 (0.9-2) Lipase 83 (73-393) U/L HCG, Qual Negative (Negative) Urine Color Urine Appearance (Clear) Urine pH (4.5-7.5) Ur Specific [place] (1.000-1.030) Urine Protein (Negative) Urine Glucose (UA) (Negative) Urine Ketones (Negative) Urine Blood (Negative) Urine Nitrite (Negative) Urine Bilirubin (Negative) Urine Urobilinogen (Negative) Ur Leukocyte Esterase (Negative)
--- NOTE | 2019-11-29 09:59 | Hospitalist Progress Note ---
Date of Service November 29, 2019 Assessment & Plan (1) Abdominal pain: Phlegmon-PT is being treated for a Phlegmon, Intra-abdominal sec to perf diverticulitis POA DDX: perforated diverticulitis/colitis, appendicitis epiplocicae Pt is 24 y/o F without significant medical history presented to ER with complaint of progressive abdominal pain x 2 days. Started epigastric to RUQ and radiating to RLQ. +nausea. Denies fever/chills, vomiting, diarrhea, constipation In ER pt afebrile, P: 106 down to 87, R: 18, BP: 123/84, 98% on RA. No leukocytosis, no significant electrolyte abnormality. Negative test. UA unremarkable CT ABD/PELVIS: 1. Phlegmon type process right upper quadrant containing a 6 mm calcification. 2. The appearance is consistent with that of a phlegmonous type process measuring 6 x 5 cm, most likely related to perforated diverticulitis versus colitis, and less likely appendicitis epiploica. 3. No well-defined percutaneously drainable abscess or collection. -In ER given 1L NSS, zofran, morphine 4mg IV, Zosyn -General Surgery to see, ER spoke to Dr Gifford who recommended IV antibiotics and monitoring with no planned surgical procedure at this time -Obtain blood cultures -NPO -IVF -Zofran prn, Morphine prn pain -Zosyn DVT Prophylaxis -Low risk, ambulate Full Code Follows with Dr El for routine care Labs Checked ROS-No Headache, No Visual Changes, No Nausea, No Vomiting, No Fever, No Chills, No Neck Pain or Stiffness, No Chest Pain, No Palpitations, No SOB, No BRYANT, No Cough, No Sputum, No Wheezing, + Abdominal Pain, No Diarrhea, No Hematemesis, No Hemoptysis, No Unexpected Weight Loss, No Flank pain, No Melena, No Hematochezia, No Frequency, No Urgency, No Burning, No Hematuria, No Rashes, No Diaphoresis. Appetite is Normal Physical Exam Gen-AAO x 3, NAD, Afebrile Head-NCAT, EOMI, PERRLA, Anicteric Sclera, No Posterior Pharyngeal Erythema Neck-Supple, No JVD, No Thyromegaly, No Masses, No LAD, No Bruits Lungs-Clear to Auscultation Bilaterally, No Rales, No Rhonchi, No Wheezing, No Crepitus Chest-No S4, +S1, +S2, No S3, No Murmurs, No Rubs, No Gallops, No Ectopy Abdomen-Soft, Bowel Sounds Present, Tender, Non Distended, No Hepatomegaly, No Splenomegaly, No Palpable Masses, No Rebound, No Rigidity, + Guarding Musculoskeletal-Full Range of Motion Bilaterally, No CVAT Extremities-No Cyanosis, No Clubbing, No Edema Nuero-Cranial Nerves II-XII grossly intact, Motor WNL, DTRs WNL, Strength WNL, Non Focal Psych-Normal Mood Admission and Anticipated Discharge Date Admission Date: November 28, 2019 Results & Data Results & Data ([facility]) Vital Signs (Past 12 Hours) Vital Signs Temp Pulse Resp BP Pulse Ox 11/29/19 07:16 37.0 C 86 16 109/67 96 11/28/19 23:17 37.3 C 85 16 104/65 96
--- NOTE | 2019-11-29 11:35 | CT Scan Report ---
ABDOMEN AND PELVIS CT WITH ORAL CONTRAST CT DOSE: 305.50 mGy.cm HISTORY: Acute generalized abdominal pain continuing abdominal pain TECHNIQUE: Multiaxial CT images of the abdomen and pelvis were performed following the use of oral co ntrast. A dose lowering technique was utilized adhering to the principles of ALARA. COMPARISON STUDY: CT abdomen and pelvis 11/28/2019 FINDINGS: Clear lung bases. No pneumatosis or pneumoperitoneum. Pectus excavatum. The imaged inferior cardiac c hambers are unremarkable. Limited evaluation of the solid abdominal organs without the use of IV cont rast. Within the limitations of the study the spleen, pancreas, liver and adrenal glands are unremark able. The gallbladder is within normal limits. Kidneys and ureters are unremarkable. Urinary bladder and uterus are within normal limits. Trace free pelvic fluid. Aorta and IVC are unremarkable. No haresh opathy. Mild likely reactive wall thickening of the duodenum. No bowel obstruction. There is moderate focal c ircumferential wall thickening involving the hepatic flexure, most pronounced image 169 series 3 with moderate pericolonic and right upper quadrant mesenteric/omental inflammation. The degree of colonic wall thickening and surrounding inflammation has a moderately improved from the 11/28/2019 study. The previously noted 7 mm hyperdense focus involving the abdominal right upper quadrant is no longer musa ntified. There is mild wall thickening of the appendix measures up to 6 mm however is contrast and ai r filled. No drainable fluid collection. The breast parenchyma and soft tissues are unremarkable. The bones appear intact. IMPRESSION: 1. Moderate wall thickening of the hepatic flexure with moderate pericolonic and right upper quadrant mesenteric/omental stranding has improved from the 11/28/2019 study. Additionally, on the prior study note was made of a subcentimeter hyperdense focus which in retrospect may have been an area of hemor rhage within the colonic wall. Primary lower GI bleed is the primary differential consideration with a focal infectious or inflammatory colitis or omental infarct with secondary colonic wall thickening considered less likely. 2. No drainable fluid collection. 3. Mild wall thickening of the appendix is likely reactive. 4. No bowel obstruction or pneumoperitoneum. ACT 112: Negative or not required by law. The above report was generated using voice recognition software. It may contain grammatical, syntax o r spelling errors. Electronically signed by: Jared Rooney M.D. 11/29/2019 11:34 AM
[2019-11-29] MEDS: DEXTROSE 5% 1,000 ML IV SCH (12:36)
[2019-11-29] MEDS ORDERED: SODIUM CHLORIDE 0.9% 1000ML 1,000 ML IV SCH (12:45)
[2019-11-30] MEDS: DEXTROSE 5% 1,000 ML IV SCH (00:33)
[2019-11-30] MEDS: PIPERACILLIN/TAZOBACTAM 3.375 GM in DEXTROSE 5% 100 ML IV SCH (05:43)
[2019-11-30 06:03] LABS: Hematocrit (blood only) 35.7 % (37-47); Hemoglobin 11.9 g/dL (12.0-16.0); Mean Corpuscular Hemoglobin 28.5 pg (25-34); Mean Corpuscular Hgb Conc 33.3 g/dL (32-36); Mean Corpuscular Volume 85.4 fL (80-100); Mean Platelet Volume 10.7 fL (7.4-10.4); Platelet Count 190 K/uL (130-400); RDW Coefficient of Variation 13.2 % (11.5-14.5); RDW Standard Deviation 41.3 fL (36.4-46.3); Red Blood Count 4.18 M/uL (4.2-5.4); White Blood Count 3.75 K/uL (4.8-10.8)
[2019-11-30 06:27] LABS: BUN Creatinine Ratio 6.5 (10-20); Calcium 8.7 mg/dl (8.5-10.1); Creatinine Clr Calc Pharmacy 114.8 ml/min; Est GFR (African American) 141.9; Est GFR (Non-African American) 122.4; Potassium 3.2 mmol/L (3.5-5.1)
--- NOTE | 2019-11-30 06:48 | Discharge Summary ---
Date of Service November 30, 2019 Admission HPI Per Admitting Provider Pt is 24 y/o F without significant medical history presented to ER with complaint of abdominal pain x2 days. Patient states 2 days ago started with cramping type pain to mid abdomen after eating dinner. Reports past 2 days pain has progressed to right upper quadrant radiating to right back and right lower quadrant with pain changing to squeezing type pain with intermittent sharp pains. Patient reports feels nauseated with the sharp pains. Denies any nausea, vomiting. Reports normal BMs last being this morning. Denies any fevers chills. Last ate granola bar this morning. Denies history of abdominal surgery. LMP 10/2019. Patient had vaginal delivery 08/16/2019. Denies diaphoresis, N/V, LÓPEZ, dizziness, syncope, vision changes, neck pain, CP, SOB, orthopnea, palpitations, cough, sore throat, choking, otalgia, rhinorrhea, paresthesias, weakness, extremity weakness, extremity edema, rashes, urinary symptoms. Admission Exam Per Admitting Provider General: no distress, non-toxic appearance, WDWN Head: normocephalic, atraumatic Eyes: PERRL, EOM's intact, conjunctiva non-injected, anicteric ENT: normal inspection external ears, nose, mucous membranes moist Neck: supple, trachea midline Lungs: clear, no respiratory distress, no wheezing/rhonchi/rales CV: RRR, no murmur, no JVD, no pretibial edema Abd: normal BS, soft, +tenderness to palpation epigastric, +tenderness to palpation RUQ and RLQ with guarding, no rebound Ext: no cyanosis, no calf tenderness Neuro: A&O x 3, no focal deficits noted, normal affect Skin: warm, dry Principal Diagnosis Diverticulitis Abd Phlegmon Discharge Exam Physical Exam Gen-AAO x 3, NAD, Afebrile Head-NCAT, EOMI, PERRLA, Anicteric Sclera, No Posterior Pharyngeal Erythema Neck-Supple, No JVD, No Thyromegaly, No Masses, No LAD, No Bruits Lungs-Clear to Auscultation Bilaterally, No Rales, No Rhonchi, No Wheezing, No Crepitus Chest-No S4, +S1, +S2, No S3, No Murmurs, No Rubs, No Gallops, No Ectopy Abdomen-Soft, Bowel Sounds Present, Non Tender, Non Distended, No Hepatomegaly, No Splenomegaly, No Palpable Masses, No Rebound, No Rigidity, No Guarding Musculoskeletal-Full Range of Motion Bilaterally, No CVAT Extremities-No Cyanosis, No Clubbing, No Edema Nuero-Cranial Nerves II-XII grossly intact, Motor WNL, DTRs WNL, Strength WNL, Non Focal Psych-Normal Mood Discharge Data Allergies Allergy/AdvReac Type Severity Reaction Status Date / Time No Known Allergies Allergy Verified 11/28/19 15:23 Consultations 11/28/19 17:02 ED Decision to Admit Stat 11/28/19 18:09 Consult General Surgery Routine Ordered Studies 11/28/19 14:49 CT abd pelvis IV con only Stat 11/29/19 08:50 CT abd pelvis oral con only Urgent Current Diagnoses Unspecified abdominal pain (11/28/19) Allergies No Known Allergies Allergy (Verified 11/28/19 15:23) Height/Weight/Isolation Height 5 ft 5 in Weight 64.5 kg Chemistry 11/28/19 11/29/19 11/30/19 14:55 05:02 05:24 Sodium 140 141 137 Potassium 3.6 3.7 3.2 L Chloride 108 H 111 H 108 H Carbon Dioxide 27 24 22 Anion Gap 5.0 6.0 8.0 BUN 9 7 4 L Creatinine 0.82 0.77 0.68 Glucose 90 73 78 Urinalysis 11/28/19 14:59 Urine Color Dark Yellow Urine Appearance Clear Urine pH 6.0 Ur Specific [place] 1.035 H Urine Protein Negative Urine Glucose (UA) Negative Urine Ketones Trace H Urine Blood Negative Urine Nitrite Negative Urine Bilirubin Negative Microbiology 11/28/19 19:12 Blood Aerobic Blood Culture - Preliminary No growth in Aerobic bottle after 24 hours. 11/28/19 19:12 Blood Anaerobic Blood Culture - Preliminary No growth in Anaerobic bottle after 24 hours. 11/28/19 17:50 Blood Aerobic Blood Culture - Preliminary No growth in Aerobic bottle after 24 hours. 11/28/19 17:50 Blood Anaerobic Blood Culture - Preliminary No growth in Anaerobic bottle after 24 hours. Hospital Course (1) Abdominal pain: Phlegmon-PT is being treated for a Phlegmon, Intra-abdominal sec to perf diverticulitis POA DDX: perforated diverticulitis/colitis Hypokalemia-PO K on DC and today Pt is 24 y/o F without significant medical history presented to ER with complaint of progressive abdominal pain x 2 days. Started epigastric to RUQ and radiating to RLQ. +nausea. Denies fever/chills, vomiting, diarrhea, constipation In ER pt afebrile, P: 106 down to 87, R: 18, BP: 123/84, 98% on RA. No leukocytosis, no significant electrolyte abnormality. Negative test. UA unremarkable CT ABD/PELVIS: 1. Phlegmon type process right upper quadrant containing a 6 mm calcification. 2. The appearance is consistent with that of a phlegmonous type process measu ring 6 x 5 cm, most likely related to perforated diverticulitis versus colitis, and less likely appendicitis epiploica. 3. No well-defined percutaneously drainable abscess or collection. -In ER given 1L NSS, zofran, morphine 4mg IV, Zosyn -General Surgery on case, ER spoke to Dr Gifford who recommended IV antibiotics and monitoring with no planned surgical procedure at this time -Obtain blood cultures -DC today on Augmentin and Flagyl x 7 days and f/u c PCP, Call me if symptoms worsen DVT Prophylaxis -Low risk, ambulate Full Code Follows with Dr El for routine care Labs Checked ROS-No Headache, No Visual Changes, No Nausea, No Vomiting, No Fever, No Chills, No Neck Pain or Stiffness, No Chest Pain, No Palpitations, No SOB, No BRYANT, No Cough, No Sputum, No Wheezing, + Abdominal Pain, No Diarrhea, No Hematemesis, No Hemoptysis, No Unexpected Weight Loss, No Flank pain, No Melena, No Hematochezia, No Frequency, No Urgency, No Burning, No Hematuria, No Rashes, No Diaphoresis. Appetite is Normal Physical Exam Gen-AAO x 3, NAD, Afebrile Head-NCAT, EOMI, PERRLA, Anicteric Sclera, No Posterior Pharyngeal Erythema Neck-Supple, No JVD, No Thyromegaly, No Masses, No LAD, No Bruits Lungs-Clear to Auscultation Bilaterally, No Rales, No Rhonchi, No Wheezing, No Crepitus Chest-No S4, +S1, +S2, No S3, No Murmurs, No Rubs, No Gallops, No Ectopy Abdomen-Soft, Bowel Sounds Present, Minimally Tender, Non Distended, No Hepatomegaly, No Splenomegaly, No Palpable Masses, No Rebound, No Rigidity, + Guarding Musculoskeletal-Full Range of Motion Bilaterally, No CVAT Extremities-No Cyanosis, No Clubbing, No Edema Nuero-Cranial Nerves II-XII grossly intact, Motor WNL, DTRs WNL, Strength WNL, Non Focal Psych-Normal Mood Total Time Total Time Spent Total Time Spent (In Minutes): 45 mnis Total Time Includes: Examination of the Patient, Discharge Planning and Medication Reconciliation Discharge Plan Discharge Items Patient Disposition: Home - Self-Care Reason For Visit: ABDOMINAL PAIN,PHELGMON Discharge Diagnosis: Abd Pain Abd Phlegmon Diverticulitis Hypokalemia Condition on Discharge: Good Health Concerns: Non Activity: Resume your previous activity Lifting: Gradually increase as tolerated Bathing: No limitations Sexual Activity: When tolerated Exercise/Sports: Gradually increase as tolerated Driving/Machine Use: No limitations Weightbearing: Full weightbearing Non-emergency contact: Primary Care Provider Call non-emergency contact if: you have any medication questions and your symptoms worsen Follow-up/Referrals: Malachi El DO [Primary Care Provider] - Dietitian Info: Advance Diet as tolerated Diet: Full liquid and Other - See Diet Comment Addtl Attending Provider Instructions: Augmentin (Amoxicillin) and Metronidazole are safe in and breast feed ing Pending Studies at Discharge: No Stand-Alone Forms: My [facility] [employer], Smoking Cessation Medications and DC Order Prescriptions: New acetaminophen [Mapap (acetaminophen)] 325 mg Tablet 650 mg PO Q4H PRN (Reason: fever or pain) Qty: 90 RF: 0 ibuprofen 600 mg tablet 600 mg PO Q8H PRN (Reason: fever or pain) Qty: 90 RF: 0 metronidazole 500 mg tablet 500 mg PO Q8H 7 Days Qty: 21 RF: 0 amoxicillin-pot clavulanate [Augmentin] 875-125 mg tablet 1 tab PO Q12H Qty: 14 RF: 0 No Action No Known Home Medications RF: 0 Discharge Orders: Discharge Order (Routine); Ordered 11/30/19 Ordered By: Shola Wong Admission Data Admit Date/Time: 11/28/19 17:22 Attending Provider: Shola Wong Admit Provider: Jud Perales Primary Care Provider: Malachi El Other Providers: Jud Perales ; Jaskaran Gifford
[2019-11-30] MEDS ORDERED: POTASSIUM CHLORIDE 20 MEQ TABCR PO STA (06:59)
[2019-11-30 07:51] VITALS: BP 131/81; PULSE 60; TEMP 98.6; O2SAT 97
== END 2019-11-30 08:07 | disposition home or self-care (01) ==
LOC: ED 14:33 → 3E 17:22 → INTOOBSV 17:22 → SUATTDRO 17:22 → 3E 17:48
DX: K57.00 Diverticulitis of small intestine with perforation and abscess without bleeding